=== PATIENT | female | born 1975 | race Caucasian/White ===

== ENCOUNTER 2017-04-29 13:05 | Inpatient (IN) | payer MEDICAID ==
[~2017-04-29] VITALS: Ht 162.6 cm; Wt 64.9 kg
[2017-04-30] VITALS (25 sets, daily range): BP systolic 108–147; BP diastolic 56–85; PULSE 53–76; RESP 12–18; TEMP 97.5–98.9; O2SAT 98
[2017-04-30] MEDS ORDERED: ceFAZolin 2 GM PREMIX 50 ML IV SCH (05:45)
[2017-04-30] MEDS ORDERED: CITRIC ACID-SODIUM CITRATE LIQ 30 ML UDC PO SCH (05:45)
[2017-04-30] MEDS ORDERED: LACTATED RINGER'S 1000 ML IV ONE (06:00)
[2017-04-30] MEDS ORDERED: PRENCAP10 PO (06:22)
[2017-04-30 06:49] LABS: BACTERIA, URINE RARE /hpf; BLOOD, URINE MOD (NEG); COMMENT (UR) CULT NOT INDICATED; CULTURE IF INDICATED CULT NOT INDICATED; GLUCOSE,URINE NEG (NEG); KETONE, URINE NEG (NEG); MUCUS URINE FEW /lpf (OCC); NITRITE,URINE NEG (NEG); PH, URINE 6.5 (5.0-8.5); SQUAMOUS EPITHELIAL CELL URINE 6 /hpf (0-5); URINE COLOR YELLOW (YELLW/STRAW)
[2017-04-30 06:56] LABS: AUTOMATED NEUTROPHIL # 6.2 TH/MM3 (1.8-7.7); BASOPHIL % 0.4 % (0.0-2.0); EOSINOPHIL % 0.5 % (0.0-4.0); HEMATOCRIT 35.9 % (35.0-46.0); HEMO FLAGS DIFF FINAL; LYMPH % 23.7 % (9.0-44.0); LYMPHOCYTE # 2.1 TH/MM3 (1.0-4.8); MEAN CELL VOLUME 91.3 FL (80.0-100.0); MEAN CORPUSCULAR HEMOGLOBIN 31.7 PG (27.0-34.0); MEAN CORPUSCULAR HGB CONC 34.7 % (32.0-36.0); MONO % 5.9 % (0.0-8.0); NEUT % 69.5 % (16.0-70.0); PLATELET COUNT 139 TH/MM3 (150-450); RED BLOOD COUNT 3.92 MIL/MM3 (4.00-5.30); RED CELL DISTRIBUTION WIDTH 13.5 % (11.6-17.2); WHITE BLOOD COUNT 8.9 TH/MM3 (4.0-11.0)
[2017-04-30] MEDS: LACTATED RINGER'S 1000 ML IV SCH ×2 (07:08→07:09)
[2017-04-30] MEDS ORDERED: ONDANSETRON HCL 4 MG/2 ML VIAL ONE (07:12)
[2017-04-30] MEDS ORDERED: MORPHINE SULFATE PF 5 MG/10 ML VIAL ONE (07:12)
[2017-04-30] MEDS ORDERED: OXYTOCIN 10 UNIT/ML AMP ONE (07:12)
[2017-04-30] MEDS ORDERED: DICLOFENAC SODIUM 37.5 MG/ML VIAL IV PUSH ONE (07:12)
[2017-04-30] MEDS ORDERED: EPIDURAL-NALOXONE HCL 0.4 MG/ML AMP IV PRN (07:25)
[2017-04-30] MEDS ORDERED: EPIDURAL-DO NOT ADMINISTER ANTICOAGULANTS PRN (07:25)
[2017-04-30] MEDS ORDERED: EPIDURAL-DIPHENHYDRAMINE HCL 50 MG CAP PO PRN (07:25)
[2017-04-30] MEDS ORDERED: EPIDURAL-NO SYSTEMIC NARCOTICS PRN (07:25)
[2017-04-30] MEDS ORDERED: EPIDURAL-DIPHENHYDRAMINE HCL 50 MG/ML VIAL IV PUSH PRN (07:25)
[2017-04-30] MEDS: DICLOFENAC SODIUM 37.5 MG/ML VIAL IV PUSH SCH ×3 (08:00→20:17)
[2017-04-30] MEDS ORDERED: OXYTOCIN 30 UNITS-500ML PREMIX 500 ML IV ONE (08:30)
[2017-04-30] MEDS ORDERED: SODIUM CHLORIDE 0.9% FLUSH 10 ML FLUSH IV FLUSH PRN (08:30)
[2017-04-30] MEDS ORDERED: oxyCODONE/ACETAMINOPHEN 5 MG/325 MG TAB PO PRN (08:30)
[2017-04-30] MEDS ORDERED: ZOLPIDEM TARTRATE 5 MG TAB PO PRN (08:30)
[2017-04-30] MEDS ORDERED: ONDANSETRON HCL 4 MG/2 ML VIAL IV PUSH PRN (08:30)
[2017-04-30] MEDS ORDERED: SIMETHICONE 80 MG CHEWABLE TAB PO PRN (08:30)
--- NOTE | 2017-04-30 08:33 | PD.OB.DELI ---
Procedure Note Section Procedure Pre Op Diagnosis term, breech with low MARYANNE, multiparity Post Op Diagnosis: Post Op Diagnosis same, delivered Performed by Linda Carrizales Procedure: Primary Low Transverse Sec Indication for delivery: malposition Informed consent obtained: For anesthesia, For procedure Confirmed correct: Patient, Procedure, Site, Time-out taken Anesthesia: Spinal Medication prior to procedure: As documented in eMAR Monitoring during procedure: Blood pressure monitoring, Pulse oximetry Urinary catheter: Inserted using sterile technique, To dependent drainage Sterile preparation: Duraprep, In usual fashion, With 2% chlorexidine ( Hibiclens) Position: Supine with wedge to right side Operative Features Skin Incision: Pfannenstiel Uterine Incision: Low transverse w/knife / blunt ext Membranes Ruptured: Artificially Presentation: Breech Delivery of : Assisted : Female One Minute : 10 Five Minute : 9 Weight: 6 14 Status of infant: Viable Placenta delivered: Intact, Other (mimedeix) Medications: Antibiotics, Oxytocin Estimated blood loss: average Procedure tolerated: Well Maternal Condition: Stable Condition: Stable (dictated) Linda Carrizales MD Apr 30, 2017 08:32
--- NOTE | 2017-04-30 08:39 | HHI.HP ---
HPI Chief Complaint breech at term Date Seen: Apr 30, 2017 Travel History International Travel<30 Days: No Contact w/Intl Traveler<30Days: No Known Affected Area: No History of Present Illness HPI 41 yo mwf at 39 and 6/7 who was found to be mariela breech at [facility] for MARYANNE MARYANNE was also 4 Brought in today for section and PPTL PNC with HOGA Low risk with no issues other than AMA Testing was reassuring Para: 1 Last Menstrual Period: Apr 30, 2017 History Past Medical History Medical History: Denies Significant Hx Obstetric History Obstetric History on term 5 yearsw ago in [place] at 6 pound 5 oz Past Surgical History Narrative Surgical no other surgeries Surgical History: No Previous Surgery Family History Family History: Negative Social History Alcohol Use: No Tobacco Use: No Substance Abuse: No Allergies-Medications (Allergen,Severity, Reaction): Coded Allergies: No Known Allergies (Unverified , 04/30/17) Home Meds Reported Medications Vit W/ Ferrous Fumara ( Multi +Dha 27-0.8-228 mg)1 Cap Cap11 Tab PO DAILY 04/30/17 Review of Systems General / Constitutional: No: Fever, Weight Gain, Chills, Other Physical Exam Vital Signs Date Time Temp Pulse Resp B/P Pulse Ox O2 Delivery O2 Flow Rate FiO2 04/30/17 07:05 59 04/30/17 07:00 65 04/30/17 06:55 67 04/30/17 06:50 58 04/30/17 06:40 59 04/30/17 06:35 54 04/30/17 06:30 58 04/30/17 06:25 54 04/30/17 06:20 53 04/30/17 06:10 61 04/30/17 06:05 74 04/30/17 06:04 97.6 18 04/30/17 06:00 76 125/83 04/30/17 06:00 66 Narrative GENERAL: Well-nourished, well-developed patient. SKIN: Warm and dry. HEAD: Normocephalic and atraumatic. EYES: No scleral icterus. No injection or drainage. ENT: No nasal drainage noted. Mucous membranes pink. Airway patent. NECK: Supple, trachea midline. No JVD. CARDIOVASCULAR: Regular rate and rhythm without murmurs, gallops, or rubs. RESPIRATORY: Breath sounds equal bilaterally. No accessory muscle use. BREASTS: Bilateral exam showed no masses , no retractions, no nipple discharge. ABDOMEN/GI: Abdomen soft, non-tender, bowel sounds present, no rebound, no guarding term 4 cm BBOW strip category one EXTREMITIES: No cyanosis or edema. BACK: Nontender without obvious deformity. No CVA tenderness. NEUROLOGICAL: Awake and alert. Motor and sensory grossly within normal limits. Five out of 5 muscle strength in all muscle groups. Normal speech. Data Data Orders Admit To Inpatient (04/30/17 ) Vital Signs (Adult) .ON ADMISSION (04/30/17 05:39) Activity Oob Ad Sarah (04/30/17 05:39) Heart (04/30/17 05:39) Urinary Catheter Management KWAN.Q8H (04/30/17 05:39) ^ Preps (04/30/17 05:39) Scd / Odilon / Foot Pump KWAN.QSHIFT (04/30/17 05:39) ^ Ultrasound For Locatio (04/30/17 05:39) Diet Npo (04/30/17 Breakfast) Type And Screen (04/30/17 05:39) Complete Blood Count With Diff (04/30/17 05:39) Urinalysis - C+S If Indicated (04/30/17 05:39) Inpatient Certification (04/30/17 ) Specimen To Be Collected PRN (04/30/17 05:39) Lactated Ringer's 1000 Ml Inj (Lr 1000 M (04/30/17 06:00) Lactated Ringer's 1000 Ml Inj (Lr 1000 M (04/30/17 06:00) Citric Acid-Sodium Citrate Liq (Bicitra (04/30/17 05:45) Cefazolin 2 Gm Premix (Ancef 2 Gm Premix (04/30/17 05:45) Diclofenac Inj (Dyloject Inj) (04/30/17 07:12) Morphine Pf Inj (Duramorph Pf 0.5 Mg/Ml (04/30/17 07:12) Ondansetron Inj (Zofran Inj) (04/30/17 07:12) Oxytocin Inj (Pitocin Inj) (04/30/17 07:12) Vital Signs (Adult) Q4HX24,Q12H (04/30/17 08:28) Activity Bed Rest (04/30/17 08:28) ^ Discontinue (05/01/17 08:28) Remove Dressing (05/01/17 08:28) ^ Binder (04/30/17 ) ^ Rhogam (04/30/17 08:28) Lactated Ringer's 1000 Ml Inj (Lr 1000 M (04/30/17 13:28) Oxytocin 30 Units-500ml Premix (Pitocin (04/30/17 08:30) Oxytocin 30 Units-500ml Premix (Pitocin (04/30/17 18:30) Sodium Chloride 0.9% Flush (Ns Flush) (04/30/17 09:00) Sodium Chloride 0.9% Flush (Ns Flush) (04/30/17 08:30) Simethicone Chew (Mylicon Chew) (04/30/17 08:30) Ibuprofen (Motrin) (04/30/17 08:30) Oxycodone-Acetamin 5-325 Mg (Percocet (04/30/17 08:30) Oxycodone-Acetamin 5-325 Mg (Percocet (04/30/17 08:30) Docusate Sodium-Senna (Nilda-Colace) (04/30/17 08:30) Zolpidem (Ambien) (04/30/17 08:30) Istaurb-Xewxf-Fzivztz Inj (M-M-R Ii Inj) (05/01/17 16:00) Hmfe-Xrd-Scfcox (Booster) Inj (Boostrix (05/01/17 16:00) Complete Blood Count With Diff (05/01/17 06:00) Ondansetron Inj (Zofran Inj) (04/30/17 08:30) Remove Urinary Catheter .ONCE (05/01/17 08:28) Labs Laboratory Tests Test 04/30/17 04/30/17 06:04 06:16 White Blood Count 8.9 Red Blood Count 3.92 Hemoglobin 12.4 Hematocrit 35.9 Mean Corpuscular Volume 91.3 Mean Corpuscular Hemoglobin 31.7 Mean Corpuscular Hemoglobin 34.7 Concent Red Cell Distribution Width 13.5 Platelet Count 139 Mean Platelet Volume 10.0 Neutrophils (%) (Auto) 69.5 Lymphocytes (%) (Auto) 23.7 Monocytes (%) (Auto) 5.9 Eosinophils (%) (Auto) 0.5 Basophils (%) (Auto) 0.4 Neutrophils # (Auto) 6.2 Lymphocytes # (Auto) 2.1 Monocytes # (Auto) 0.5 Eosinophils # (Auto) 0.0 Basophils # (Auto) 0.0 CBC Comment DIFF FINAL Differential Comment Blood Type O POSITIVE Antibody Screen NEGATIVE Blood Bank Comment Urine Color YELLOW Urine Turbidity HAZY Urine pH 6.5 Urine Specific Froid 1.020 Urine Protein TRACE Urine Glucose (UA) NEG Urine Ketones NEG Urine Occult Blood MOD Urine Nitrite NEG Urine Bilirubin NEG Urine Urobilinogen LESS THAN 2.0 Urine Leukocyte Esterase MOD Urine RBC 1 Urine WBC 4 Urine Squamous Epithelial 6 Cells Urine Bacteria RARE Urine Mucus FEW Microscopic Urinalysis Comment CULT NOT INDICATED Assessment/Plan Assessment and Plan term breech at 41 yoa for section and PPTL all issues counseled in detail Linda Carrizales MD Apr 30, 2017 08:39
[2017-04-30] MEDS ORDERED: OXYTOCIN 30 UNITS-500ML PREMIX 500 ML ONE (08:52)
[2017-04-30] MEDS ORDERED: SODIUM CHLORIDE 0.9% FLUSH 10 ML FLUSH IV FLUSH SCH (09:00)
[2017-04-30] MEDS ORDERED: LACTATED RINGER'S 1000 ML INJ 1,000 ML IV SCH (13:28)
[2017-04-30] MEDS ORDERED: OXYTOCIN 30 UNITS-500ML PREMIX 500 ML IV PRN (18:30)
--- NOTE | 2017-04-30 19:55 | MP ---
cc: LINDA MURDOCK DATE OF SURGERY: 04/30/2017. PREOPERATIVE DIAGNOSIS: 1. Term intrauterine in mariela breech with low fluid and extended head. 2. Multiparity. 3. desired sterility POSTOPERATIVE DIAGNOSIS: 1. Term intrauterine in mariela breech with low fluid and extended head. 2. Multiparity. 3. desired sterility OPERATIVE PROCEDURE PERFORMED: 1. Primary low transverse segment section. 2. Bilateral salpingectomy. SURGEON: Linda Murdock MD. ANESTHESIA: Spinal with Duramorph. ATTRACTION ATTENDANT: Anabel Pereira MS-3. FINDINGS: A living female was delivered from the left sacrum anterior with clear fluid and no nuchal cord. Placenta was posterior intact with a three-vessel cord. Both tubes were excised from the mid interstitial portion to the fimbria and sent to pathology. There was less than average bleeding. Sponge, instrument, needle counts were correct. Mom and baby tolerated procedure well and the placenta was sent to [facility]. DESCRIPTION OF THE PROCEDURE IN DETAIL: The patient was identified as Ms. Veloz. She was taken to the operating room and received a spinal with Duramorph and then was placed in dorsal supine position with weight off the vena cava. She was prepped and draped in the usual sterile fashion. She had sequential stockings on and a Sparks catheter in place. A time-out was performed with all in attendance after assuring adequate analgesia. Her was brought into the room. A Pfannenstiel incision was made with a knife and carried down through to the rectus fascia with the Bovie and then the rectus fascia was incised and taken off the rectus muscle. The rectus muscle was in the midline. The parietal peritoneum was entered and a bladder flap was created off the lower uterine segment. A small incision was made into the intrauterine cavity and extended bluntly in a vertical fashion. The infant was delivered with the findings as noted above using the classic Pinard movements. She was then placed on the abdomen. The cord was clamped after a 45-second delay, cut and then she was handed to the neonatology team in attending. The placenta was delivered manually intact with a three-vessel cord and sent to [facility]. The uterus was exteriorized, cleaned with a lap sponge and closed with chromic in a running interlocking suture with a second horizontal imbricating layer. Then the right tube was grasped and the fimbriated portion up to the mid tubal portion was tied off and a loop excised and the area noted to be hemostatic. This was done with three pieces of #0 chromic. The left side was treated the exact same and labeled and then the uterus was carefully replaced into the peritoneal cavity with care to avoid disrupting the salpingectomy on either side. The incision was noted to be hemostatic. Copious irrigation was performed. Then the rectus muscle and peritoneum were closed in a running fashion loosely. The fascia was closed with #1 Vicryl in a running nonlocking fashion. Subcutaneous layer was closed with 3-0 plain and the skin was closed with 4-0 Vicryl on a Braxton needle. Estimated blood loss was average. Sponge, instrument, needle count correct. She tolerated the procedure well. Linda Murdock MD PPC/JCC /8:39 AM /7:24 PM
[2017-05-01] MEDS: DICLOFENAC SODIUM 37.5 MG/ML VIAL IV PUSH SCH (02:15)
[2017-05-01 02:23] VITALS: BP 143/88; PULSE 61; RESP 20; TEMP 98.6
[2017-05-01 05:58] LABS: AUTOMATED NEUTROPHIL # 10.6 TH/MM3 (1.8-7.7); BASOPHIL % 0.2 % (0.0-2.0); EOSINOPHIL # 0.1 TH/MM3 (0-0.4); EOSINOPHIL % 0.5 % (0.0-4.0); HEMATOCRIT 31.1 % (35.0-46.0); HEMO FLAGS DIFF FINAL; LYMPH % 12.4 % (9.0-44.0); LYMPHOCYTE # 1.6 TH/MM3 (1.0-4.8); MEAN CELL VOLUME 91.9 FL (80.0-100.0); MEAN CORPUSCULAR HEMOGLOBIN 31.6 PG (27.0-34.0); MEAN CORPUSCULAR HGB CONC 34.3 % (32.0-36.0); MONO % 4.1 % (0.0-8.0); NEUT % 82.8 % (16.0-70.0); PLATELET COUNT 127 TH/MM3 (150-450); RED BLOOD COUNT 3.38 MIL/MM3 (4.00-5.30); RED CELL DISTRIBUTION WIDTH 13.6 % (11.6-17.2); WHITE BLOOD COUNT 12.8 TH/MM3 (4.0-11.0)
[2017-05-01] MEDS: oxyCODONE/ACETAMINOPHEN 5 MG/325 MG TAB PO PRN ×2 (08:15→14:32)
[2017-05-01] MEDS: DOCUSATE SODIUM 50 MG/SENNA 8.6 MG TAB PO PRN ×2 (08:15→21:43)
[2017-05-01] MEDS: IBUPROFEN 600 MG TAB PO PRN ×3 (08:15→21:43)
[2017-05-01 08:20] VITALS: BP 134/83; PULSE 69; RESP 16; TEMP 99.2
--- NOTE | 2017-05-01 08:26 | HHI.OB ---
Subjective Post Operative Day: 1 Remarks Doing great nursing mild pain Objective Vitals/I&O Vital Signs Date Time Temp Pulse Resp B/P Pulse Ox O2 Delivery O2 Flow Rate FiO2 05/01/17 02:23 61 20 143/88 05/01/17 02:23 98.6 04/30/17 21:00 98.6 62 18 110/70 04/30/17 20:22 18 04/30/17 14:26 98.9 65 16 132/79 04/30/17 10:15 60 16 134/85 04/30/17 09:57 97.6 04/30/17 09:43 97.5 04/30/17 09:30 54 126/78 04/30/17 09:30 16 98 04/30/17 09:27 97.6 04/30/17 09:15 56 16 136/75 04/30/17 09:15 98 04/30/17 09:00 58 108/56 98 04/30/17 08:59 16 04/30/17 08:47 60 12 147/84 98 04/30/17 08:47 137/84 04/30/17 08:47 16 04/30/17 08:38 97.7 60 12 144/79 98 Result Diagram: 05/01/17 0504 Objective Remarks GENERAL: Well-nourished, well-developed patient. CARDIOVASCULAR: Regular rate and rhythm without murmurs, gallops, or rubs. RESPIRATORY: Breath sounds equal bilaterally. No accessory muscle use. ABDOMEN/GI: Abdomen soft, non-tender, bowel sounds present. Incision: Clean, dry and intact. Fundus: Firm, non-tender at umbilicus. GENITOURINARY: Light to moderate bleeding. EXTREMITIES: No cyanosis or edema, non-tender, without signs of DVT. Medications and IVs Current Medications Medications (Trade) Dose Ordered Sig/Rossy Route Start Time Stop Time Status Last Admin Lactated Ringer's 1,000 ml @ 150 mls/hr Q6H40M IV 04/30/17 06:00 04/30/17 07:09 (Lr 1000 ml Inj) 1,000 ml @ 100 mls/hr Q10H IV 04/30/17 13:28 05/01/17 09:27 (NS Flush) 2 ml BID IV FLUSH 04/30/17 09:00 (NS Flush) 2 ml UNSCH PRN IV FLUSH 04/30/17 08:30 (Mylicon Chew) 80 mg QID PRN PO 04/30/17 08:30 (Motrin) 600 mg Q6H PRN PO 04/30/17 08:30 05/01/17 08:15 (Percocet 5-325 Mg) 1 tab Q4H PRN PO 04/30/17 08:30 05/01/17 08:15 (Percocet 5-325 Mg) 2 tab Q4H PRN PO 04/30/17 08:30 (Nilda-Colace) 2 tab Q12H PRN PO 04/30/17 08:30 05/01/17 08:15 (Ambien) 5 mg HS PRN PO 04/30/17 08:30 (M-M-R Ii Inj) 0.5 ml ONCE ONCE SQ 05/01/17 16:00 05/01/17 16:01 (Boostrix Inj) 0.5 ml ONCE ONCE IM 05/01/17 16:00 05/01/17 16:01 05/01/17 02:15 (Zofran Inj) 4 mg Q6H PRN IV PUSH 04/30/17 08:30 Assessment/Plan Assessment and Plan POD 1 s/p section with PPTL (fimbriectomy) routine POD 1 care Linda Carrizales MD May 01, 2017 08:26
[2017-05-01] MEDS ORDERED: DIPHTH/TETANUS/ACEL PERTUSSIS (BOOSTER) 0.5 ML VIAL/PFS IM ONE (16:00)
[2017-05-01] MEDS ORDERED: MEASLES, MUMPS, RUBELLA VACCINE 0.5 ML VIAL SQ ONE (16:00)
[2017-05-01] MEDS ORDERED: diphenhydrAMINE HCL 25 MG CAP PO PRN (19:15)
[2017-05-01 20:00] VITALS: BP 155/95; PULSE 74; RESP 18; TEMP 97.9
[2017-05-02] MEDS: oxyCODONE/ACETAMINOPHEN 5 MG/325 MG TAB PO PRN ×4 (03:15→21:28)
[2017-05-02] MEDS: IBUPROFEN 600 MG TAB PO PRN ×3 (05:45→17:45)
[2017-05-02 07:30] VITALS: BP 118/83; PULSE 63; RESP 18; TEMP 97.9
--- NOTE | 2017-05-02 11:23 | HHI.OB ---
Subjective Post Operative Day: 2 Remarks POD#2, slow recovery, stable Objective Vitals/I&O Vital Signs Date Time Temp Pulse Resp B/P Pulse Ox O2 Delivery O2 Flow Rate FiO2 05/02/17 07:30 97.9 63 18 118/83 05/02/17 04:15 18 05/01/17 22:43 18 05/01/17 20:42 18 05/01/17 20:00 97.9 74 18 155/95 Result Diagram: 05/01/17 0504 Objective Remarks GENERAL: Well-nourished, well-developed patient. CARDIOVASCULAR: Regular rate and rhythm without murmurs, gallops, or rubs. RESPIRATORY: Breath sounds equal bilaterally. No accessory muscle use. ABDOMEN/GI: Abdomen soft, non-tender, bowel sounds present. Incision: Clean, dry and intact. Fundus: Firm, non-tender at umbilicus. GENITOURINARY: Light to moderate bleeding. EXTREMITIES: No cyanosis or edema, non-tender, without signs of DVT. Medications and IVs Current Medications Medications (Trade) Dose Ordered Sig/Rossy Route Start Time Stop Time Status Last Admin (Lr 1000 ml Inj) 1,000 ml @ 150 mls/hr Q6H40M IV 04/30/17 06:00 04/30/17 07:09 (NS Flush) 2 ml BID IV FLUSH 04/30/17 09:00 (NS Flush) 2 ml UNSCH PRN IV FLUSH 04/30/17 08:30 (Mylicon Chew) 80 mg QID PRN PO 04/30/17 08:30 (Motrin) 600 mg Q6H PRN PO 04/30/17 08:30 05/02/17 11:07 (Percocet 5-325 Mg) 1 tab Q4H PRN PO 04/30/17 08:30 05/02/17 11:07 (Percocet 5-325 Mg) 2 tab Q4H PRN PO 04/30/17 08:30 05/01/17 19:42 (Nilda-Colace) 2 tab Q12H PRN PO 04/30/17 08:30 05/01/17 21:43 (Ambien) 5 mg HS PRN PO 04/30/17 08:30 (Zofran Inj) 4 mg Q6H PRN IV PUSH 04/30/17 08:30 (Benadryl) 25 mg Q6H PRN PO 05/01/17 19:15 05/01/17 21:43 Assessment/Plan Assessment and Plan POD#2, stable, order binder Discharge Planning Plan for POD#3, thursday Attending Attestation seen by Chava John MD May 02, 2017 11:23
[2017-05-02 15:30] VITALS: PULSE 70; RESP 14; TEMP 98.3
[2017-05-02 16:00] VITALS: BP 121/72
--- NOTE | 2017-05-02 16:21 | HHI.DS ---
Admission Date Apr 30, 2017 at 05:29 Admitting Diagnosis Diagnosis: : Primary : Female Brief History 41 yo mwf at 39 and 6/7 who was found to be mariela breech at [facility] for MARYANNE MARYANNE was also 4 Brought in today for section and PPTL PNC with HOGA Low risk with no issues other than AMA Testing was reassuring Pt Condition on Discharge: Good Discharge Disposition: Discharge Home Discharge Instructions Diet Instructions: As Tolerated, No Restrictions Activities You Can Perform: Shower Only-No Bath Activities to Avoid: Prolonged Standing, Strenuous Activity, Driving, Sexual Activity Chava Sam MD May 02, 2017 16:21
[2017-05-02] MEDS: DOCUSATE SODIUM 50 MG/SENNA 8.6 MG TAB PO PRN (17:45)
[2017-05-02 21:00] VITALS: BP 136/80; PULSE 69; RESP 16; TEMP 98.5
[2017-05-03] MEDS: IBUPROFEN 600 MG TAB PO PRN ×2 (01:25→08:33)
[2017-05-03] MEDS: oxyCODONE/ACETAMINOPHEN 5 MG/325 MG TAB PO PRN ×2 (01:25→08:33)
[2017-05-03 08:30] VITALS: BP 152/82; PULSE 69; RESP 16; TEMP 98
[2017-05-03] MEDS: DOCUSATE SODIUM 50 MG/SENNA 8.6 MG TAB PO PRN (08:57)
--- NOTE | 2017-05-03 11:26 | HHI.OB ---
Subjective Post Operative Day: 3 Remarks POD#3, Stable for d/c Objective Vitals/I&O Vital Signs Date Time Temp Pulse Resp B/P Pulse Ox O2 Delivery O2 Flow Rate FiO2 05/03/17 08:30 69 16 152/82 05/03/17 08:30 98.0 05/02/17 21:00 98.5 69 16 136/80 05/02/17 16:00 121/72 05/02/17 15:30 98.3 70 14 Result Diagram: 05/01/17 0504 Objective Remarks GENERAL: Well-nourished, well-developed patient. CARDIOVASCULAR: Regular rate and rhythm without murmurs, gallops, or rubs. RESPIRATORY: Breath sounds equal bilaterally. No accessory muscle use. ABDOMEN/GI: Abdomen soft, non-tender, bowel sounds present. Incision: Clean, dry and intact. Fundus: Firm, non-tender at umbilicus. GENITOURINARY: Light to moderate bleeding. EXTREMITIES: No cyanosis or edema, non-tender, without signs of DVT. Medications and IVs Current Medications Medications (Trade) Dose Ordered Sig/Rossy Route Start Time Stop Time Status Last Admin (Lr 1000 ml Inj) 1,000 ml @ 150 mls/hr Q6H40M IV 04/30/17 06:00 04/30/17 07:09 (NS Flush) 2 ml BID IV FLUSH 04/30/17 09:00 (NS Flush) 2 ml UNSCH PRN IV FLUSH 04/30/17 08:30 (Mylicon Chew) 80 mg QID PRN PO 04/30/17 08:30 05/03/17 08:57 (Motrin) 600 mg Q6H PRN PO 04/30/17 08:30 05/03/17 08:33 (Percocet 5-325 Mg) 1 tab Q4H PRN PO 04/30/17 08:30 05/03/17 08:33 (Percocet 5-325 Mg) 2 tab Q4H PRN PO 04/30/17 08:30 05/01/17 19:42 (Nilda-Colace) 2 tab Q12H PRN PO 04/30/17 08:30 05/03/17 08:57 (Ambien) 5 mg HS PRN PO 04/30/17 08:30 (Zofran Inj) 4 mg Q6H PRN IV PUSH 04/30/17 08:30 (Benadryl) 25 mg Q6H PRN PO 05/01/17 19:15 05/01/17 21:43 Assessment/Plan Assessment and Plan POD#3, stable, order binder Discharge Planning Routine Chava Sam MD May 03, 2017 11:26
[2017-05-03] MEDS ORDERED: SENN1TAB PO (11:27)
[2017-05-03] MEDS ORDERED: IBUP-232 PO (11:27)
[2017-05-03] MEDS ORDERED: OXYC1TAB63 PO (11:27)
== END 2017-05-03 13:16 | disposition home or self-care (01) | DRG 765 ==
LOC: H2EB 04-30 05:29 → UNDOADMIN 04-30 05:29 → H1EA 04-30 10:04
PROVIDERS: ADMIT Obstetrics & Gynecology; ATTEND Obstetrics & Gynecology
PROC: 10D00Z1 Extraction of Products of Conception, Low, Open Approach (ICD-10-PCS; principal; 2017-04-30)
PROC: 0UB70ZZ Excision of Bilateral Fallopian Tubes, Open Approach (ICD-10-PCS; 2017-04-30)
DX: O32.1XX0 Maternal care for breech presentation, not applicable or unspecified (principal); O41.8X30 Other specified disorders of amniotic fluid and membranes, third trimester, not applicable or unspecified; O09.523 Supervision of elderly multigravida, third trimester; Z30.2 Encounter for sterilization; Z3A.40 40 weeks gestation of pregnancy; Z37.0 Single live birth
CPT/HCPCS: 81001; 85025; 86850; 86900; 86901; 88302; 90715; J0690; J1130; J2274; J2405; J2590; J7120